=== PATIENT | female | born 1975 | race African-American/Black ===

== ENCOUNTER 2016-04-11 12:53 | Emergency (ER) | payer OTHER ==
[~2016-04-11] VITALS: Ht 149.9 cm; Wt 78.3 kg
[~2016-04-11 12:53] MED LIST: ADVAIR 100/501 DISK IH; ADVAIR HFA120 INHALA IH; ADVIL,NUPRIN,M200 MG PO; ATIVAN0.5 MG PO; ATORVASTATIN CA10 MG PO; AUGMENTIN875 MG PO; AZITHROMYCIN250 MG1 PO; CYCLOBENZAPRINE10 MG PO; DICYCLOMINE HCL20 MG PO; DUONEB 2.5-0.5 M3 ML AEROSOL; ENDOCET 5-3251 EACH PO; FLEXERIL5 MG PO; GABAPENTIN100 MG PO; GABAPENTIN300 MG PO; HYCODAN SYRUP480 ML PO; LANTUS 10100 UNITS/ SC; LEVEMIR100 UNIT/2 SC; METFORMIN HCL500 MG PO; METOCLOPRAMIDE H5 MG PO; MOVE FREE JOIN1 EACH PO; NAPROSYN500 MG PO; NORCO 5/3251 TABLET PO; NOVOLOG 10100 UNITS/ SC; PERCOCET 5/31 TABLET PO; PREDNISONE5 MG PO; ROBITUSSIN AC,T10 ML PO; SPIRIVA RESPIMAT4 GM IH; TAMSULOSIN HCL0.4 MG PO; TRAMADOL HCL50 MG PO; VICODIN 5-3001 EACH PO; XARELTO15 MG PO; ZITHROMAX Z-PA250 MG PO; ZOFRAN ODT4 MG PO
[2016-04-11 14:14] LABS: INFLUENZA A VIRAL ANTIGEN NEGATIVE; INFLUENZA B VIRAL ANTIGEN NEGATIVE
[2016-04-11 14:26] LABS: HEMATOCRIT 39.6 % (36.0-46.0); MCH 28.4 PG (29.0-34.0); MCHC 34.1 G/DL (30.0-36.0); MCV 83.2 FL (83-99); MEAN PLAT.VOLUME 9.9 uM^3 (9.5-12.4); PLATELET COUNT 325 K/uL (156-360); RBC DIS.WIDTH-CV 13.5 % (11.8-14.6); RBC DIS.WIDTH-SD 40.1 % (39-53); RED BLOOD COUNT 4.76 M/uL (3.80-5.20); WHITE BLOOD COUNT 14.1 K/uL (4.1-10.2)
[2016-04-11 14:43] LABS: CHLORIDE 105 mEq/L (99-109); POTASSIUM 3.9 mEq/L (3.7-5.4); SODIUM 142 mEq/L (136-147)
[2016-04-11 14:45] LABS: GLUCOSE 250 mg/dL (70-99)
[2016-04-11 14:47] LABS: ANION GAP 10 MEQ/L (2-14)
[2016-04-11 14:49] LABS: GFR ESTIMATE (CALCULATED) > 59 mL/min/
[2016-04-11 14:50] LABS: UREA NITROGEN (BUN) 9 mg/dL (9-23)
[2016-04-11 15:11] VITALS: BP 121/79
== END 2016-04-11 15:12 | disposition home or self-care (01) ==
LOC: EME 12:53
PROVIDERS: Nurse Practitioner Family
DX: J06.9 Acute upper respiratory infection, unspecified (principal); Z88.6 Allergy status to analgesic agent; Z87.891 Personal history of nicotine dependence
CPT/HCPCS: 71020; 80048; 85027; 87502; 99281; 99284

== ENCOUNTER 2016-04-23 05:51 | Emergency (ER) | payer OTHER ==
[~2016-04-23] VITALS: Ht 149.9 cm; Wt 73.7 kg
[2016-04-23 07:05] LABS: HEMATOCRIT 38.5 % (36.0-46.0); MCH 28.8 PG (29.0-34.0); MCV 84.6 FL (83-99); MEAN PLAT.VOLUME 10.8 uM^3 (9.5-12.4); PLATELET COUNT 320 K/uL (156-360); RBC DIS.WIDTH-CV 13.9 % (11.8-14.6); RBC DIS.WIDTH-SD 42.6 % (39-53); RED BLOOD COUNT 4.55 M/uL (3.80-5.20); WHITE BLOOD COUNT 13.4 K/uL (4.1-10.2)
[2016-04-23 07:24] LABS: ADD MIUA? YES; BILIRUBIN NEGATIVE; BLOOD NEGATIVE; COLOR YELLOW ((YELLOW)); GLUCOSE (STRIP) NEGATIVE; KETONES 5; LEUKOCYTES NEGATIVE; NITRITE NEGATIVE; PROTEIN (STRIP) 100; SPECIFIC GRAVITY 1.029 (1.000-1.030); UROBILINOGEN 0.2 MG/DL (0.2-1.0)
[2016-04-23 07:31] LABS: BACTERIA RARE /HPF; EPITHELIAL CELLS 3+ /HPF; MUCUS TRACE /LPF; RED BLOOD CELLS 0-5 /HPF (0-5); UCUL ADDED? NO; WHITE BLOOD CELLS 0-5 /HPF (0-5)
[2016-04-23 07:32] LABS: ANION GAP 11 MEQ/L (2-14); CHLORIDE 103 MEQ/L (99-109); SAMPLE HEMOLYSIS CHECK 2; SAMPLE ICTERIC CHECK 0; SAMPLE LIPEMIA CHECK 1; SODIUM 138 MEQ/L (136-147)
[2016-04-23 07:38] LABS: ALKALINE PHOSPHATASE 100 IU/L (3-129); GFR ESTIMATE (CALCULATED) > 59 mL/min/; GLUCOSE 198 mg/dL (70-99); TOTAL BILIRUBIN 0.4 MG/DL (0.0-1.0); UREA NITROGEN (BUN) 11 mg/dL (9-23)
[2016-04-23 07:42] LABS: POTASSIUM ND MEQ/L (3.7-5.4)
[2016-04-23] MEDS ORDERED: NAPROXEN500 MG PO (08:16)
[2016-04-23 08:25] LABS: POTASSIUM 3.7 mEq/L (3.7-5.4)
[2016-04-23 08:32] LABS: NO-CHARGE AST (GOT) 66 IU/L (2-34)
[2016-04-23 09:13] VITALS: BP 110/78
== END 2016-04-23 09:25 | disposition home or self-care (01) ==
LOC: EME 05:51
PROVIDERS: Emergency Medicine
DX: T14.8 Other injury of unspecified body region (principal); R10.9 Unspecified abdominal pain; M54.5 Low back pain; R51 Headache; R07.9 Chest pain, unspecified; V47.5XXA Car driver injured in collision with fixed or stationary object in traffic accident, initial encounter; Y92.411 Interstate highway as the place of occurrence of the external cause; Z87.891 Personal history of nicotine dependence
CPT/HCPCS: 74176; 80053; 81003; 84999; 85027; 93005; 99281; 99284

== ENCOUNTER 2017-05-26 17:26 | Emergency (ER) | payer OTHER ==
[~2017-05-26] VITALS: Ht 149.9 cm; Wt 76.0 kg
[~2017-05-26 17:26] MED LIST changes: +NAPROXEN500 MG PO
[2017-05-26 18:27] LABS: HEMOGLOBIN 13.9 G/DL (11.9-15.5); MCHC 33.9 G/DL (30.0-36.0); MCV 85.4 FL (83-99); PLATELET COUNT 290 K/uL (156-360); RBC DIS.WIDTH-SD 40.8 % (39-53); WHITE BLOOD COUNT 13.2 K/uL (4.1-10.2)
[2017-05-26 18:44] LABS: CHLORIDE 105 mEq/L (99-109); POTASSIUM 3.5 mEq/L (3.7-5.4); SODIUM 142 mEq/L (136-147)
[2017-05-26 18:46] LABS: GLUCOSE 226 mg/dL (70-99)
[2017-05-26 18:50] LABS: GFR ESTIMATE (CALCULATED) > 59 mL/min/
[2017-05-26 18:51] LABS: UREA NITROGEN (BUN) 9 mg/dL (9-23)
[2017-05-26 18:59] LABS: TROP-I INTERPRETATION NEGATIVE; TROPONIN-I < 0.01 ng/mL (0.0-0.30)
[2017-05-26] MEDS ORDERED: ULTRAM50 MG PO (21:35)
[2017-05-26 21:48] LABS: TROP-I INTERPRETATION NEGATIVE; TROPONIN-I < 0.01 ng/mL (0.0-0.30)
[2017-05-26 22:03] VITALS: BP 126/74
== END 2017-05-26 22:04 | disposition home or self-care (01) ==
LOC: EME 17:26
PROVIDERS: Emergency Medicine
DX: M79.605 Pain in left leg (principal); R07.89 Other chest pain; I25.10 Atherosclerotic heart disease of native coronary artery without angina pectoris; Z86.718 Personal history of other venous thrombosis and embolism; Z86.73 Personal history of transient ischemic attack (TIA), and cerebral infarction without residual deficits; Z90.710 Acquired absence of both cervix and uterus; Z87.891 Personal history of nicotine dependence
CPT/HCPCS: 71046; 71275; 80048; 84484; 84702; 85027; 93005; 93971; 99281; 99285; J7030

== ENCOUNTER 2017-08-08 17:40 | Emergency (ER) | payer OTHER ==
[~2017-08-08] VITALS: Ht 149.9 cm; Wt 74.5 kg
[~2017-08-08 17:40] MED LIST changes: +ULTRAM50 MG PO
[2017-08-08 18:39] LABS: APPEARANCE CLEAR ((CLEAR)); BILIRUBIN NEGATIVE; BLOOD NEGATIVE; COLOR STRAW ((YELLOW)); GLUCOSE (STRIP) >=500; KETONES NEGATIVE; LEUKOCYTES NEGATIVE; NITRITE NEGATIVE; PROTEIN (STRIP) NEGATIVE; SPECIFIC GRAVITY 1.026 (1.000-1.030); UCUL ADDED? NO; UROBILINOGEN 0.2 MG/DL (0.2-1.0)
[2017-08-08 19:20] LABS: HEMATOCRIT 42.2 % (36.0-46.0); HEMOGLOBIN 14.2 G/DL (11.9-15.5); MCH 28.9 PG (29.0-34.0); MCHC 33.6 G/DL (30.0-36.0); MCV 85.9 FL (83-99); PLATELET COUNT 290 K/uL (156-360); RBC DIS.WIDTH-CV 13.2 % (11.8-14.6); RBC DIS.WIDTH-SD 41.1 % (39-53); RED BLOOD COUNT 4.91 M/uL (3.80-5.20); WHITE BLOOD COUNT 15.7 K/uL (4.1-10.2)
[2017-08-08 19:29] LABS: ALBUMIN 4.4 g/dL (3.2-4.8); CHLORIDE 103 mEq/L (99-109); POTASSIUM 3.9 mEq/L (3.7-5.4); SODIUM 142 mEq/L (136-147)
[2017-08-08 19:31] LABS: GLUCOSE 268 mg/dL (70-99)
[2017-08-08 19:32] LABS: TOTAL PROTEIN 8.1 g/dL (6.4-8.3)
[2017-08-08 19:33] LABS: TOTAL BILIRUBIN 0.5 mg/dL (0.0-1.0)
[2017-08-08 19:35] LABS: ALKALINE PHOSPHATASE 134 IU/L (3-129); GFR ESTIMATE (CALCULATED) > 59 mL/min/
[2017-08-08 19:36] LABS: UREA NITROGEN (BUN) 7 mg/dL (9-23)
[2017-08-08 19:37] LABS: AST (GOT) 44 IU/L (2-34)
[2017-08-08 19:38] LABS: ALT (GPT) 27 IU/L (3-49)
[2017-08-08 19:44] LABS: QUANTITATIVE HCG 4.8 MIU/ML
[2017-08-08] MEDS ORDERED: BENTYL10 MG PO (21:06)
[2017-08-08] MEDS ORDERED: ZOFRAN ODT4 MG PO (21:06)
[2017-08-08 21:22] VITALS: BP 125/79
== END 2017-08-08 21:23 | disposition home or self-care (01) ==
LOC: EME 17:40
DX: R10.11 Right upper quadrant pain (principal); R11.0 Nausea; R19.7 Diarrhea, unspecified; Z86.73 Personal history of transient ischemic attack (TIA), and cerebral infarction without residual deficits; F31.9 Bipolar disorder, unspecified; Z88.5 Allergy status to narcotic agent; Z88.6 Allergy status to analgesic agent; Z87.891 Personal history of nicotine dependence
CPT/HCPCS: 74177; 80053; 81003; 84702; 85027; 99281; 99285; J2405; J3010; J7030

== ENCOUNTER 2017-10-21 16:16 | Emergency (ER) | payer OTHER ==
[~2017-10-21] VITALS: Ht 149.9 cm; Wt 75.4 kg
[~2017-10-21 16:16] MED LIST changes: +BENTYL10 MG PO
[2017-10-21] MEDS ORDERED: ZOFRAN4 MG PO (20:37)
[2017-10-21 20:40] VITALS: BP 136/72
== END 2017-10-21 20:41 | disposition home or self-care (01) ==
LOC: EXP 16:16 → EME 16:16 → EXP 20:41
DX: R51 Headache (principal); Z86.73 Personal history of transient ischemic attack (TIA), and cerebral infarction without residual deficits; Z88.5 Allergy status to narcotic agent; Z88.6 Allergy status to analgesic agent
CPT/HCPCS: 99281; 99284; J0780; J1200; J1885; J7030